=== PATIENT | female | born 1965 | race Caucasian/White ===

== ENCOUNTER → 2019-02-16 | Day surgery (SDC) | payer OTHER ==
[~2019-02-16] MED LIST: CARVEDILOL25 MG PO; CATAPRES0.1 MG PO; DEMADEX20 MG PO; FERROUSUL325 M1 PO; FLOMAX0.4 MG PO; GRALISE600 MG PO; HYDRALAZINE HC100 MG PO; LIPITOR40 MG PO; MUPIROCIN15 GM TOP; NORVASC10 MG PO; NOVOLOG100 UNIT/1 SUBQ; PHOSLO667 MG PO; TRAMADOL 50 MG50 MG PO; TRESIBA100 UNIT/1 SUBQ; TUMS200 MG PO; URECHOLINE 10 M10 M1 PO; VICTOZA 3-0.6 MG/0.1 SUBQ; VITAMIN D250 MCG PO
[2019-02-16 07:38] LABS: HEMATOCRIT 25.6 % (37.0-47.0); HEMOGLOBIN 8.4 gm/dL (12.0-15.0); MCH 27.7 pg (26.0-34.0); MCHC 32.8 g/dL (28.0-37.0); MCV 84.4 fL (80.0-100.0); MPV 6.9 fl. (7.2-11.1); RBC 3.03 mil/uL (4.20-5.00); RDW-CV 15.4 % (10.5-14.5)
[2019-02-16 07:45] LABS: CALCIUM 9.1 mg/dL (8.5-10.1); CREATININE 5.5 mg/dL (0.6-1.3); POTASSIUM 4.8 mmol/L (3.5-5.1)
--- NOTE | 2019-02-16 09:48 | EKG ---
[place] [address] ELECTROCARDIOGRAM REPORT Name: JONATHAN ANDERS Room: [facility]#: [id number] Admission: 02/16/19 Attend Phys: Giovanny Sharma MD Discharge: Date of : 65 Report #: [id number] THIS REPORT FOR: //name// [facility] Test Date: 2019-02-16 Test Time: 06:57:17 Pat Name: JONATHAN ANDERS Department: Room: Gender: F Sports Trainer: KB : 1965 Requested By: Giovanny Sharma Order Number: [id number] Reading MD: Catracho Chavira Measurements Intervals [place] Rate: 76 P: 1 [place]: 224 QRS: 21 QRSD: 97 T: 48 QT: 393 QTc: 442 Interpretive Statements Sinus rhythm Prolonged [place] interval No previous ECG available for comparison Electronically Signed On 02-16-2019 9:47:49 SOFTWARE DEVELOPMENT ADVISOR by Catracho Chavira [email or web address] <ELECTRONICALLY SIGNED> By: Catracho Chavira MD, [facility] 02/16/19 0947 [id number] Catracho Chavira MD, FACC /EPI
--- NOTE | 2019-02-18 09:06 | OP ---
[address] [address] OPERATIVE REPORT Name: JONATHAN ANDERS Room: [facility]#: [id number] Admission: 02/16/19 Attend Phys: Giovanny Sharma MD Discharge: Date of : 65 Report #: [id number] THIS REPORT FOR: //name// CC: Ratnesh. Steve Sharma DATE OF SERVICE: 02/16/2019 PREOPERATIVE DIAGNOSIS: End-stage renal disease with left forearm arteriovenous fistula that has failed to mature. POSTOPERATIVE DIAGNOSIS: End-stage renal disease with left forearm arteriovenous fistula that has failed to mature. PROCEDURES: 1. Transposition of cephalic vein within the forearm. 2. Dilation of cephalic vein within the forearm using 4-mm and 5-mm dilators. SURGEON: Giovanny Sharma MD CASINO ASSISTANT MANAGER: Mikel Ruffin. COMPLICATIONS: None. ESTIMATED BLOOD LOSS: 10 mL. SPECIMEN: None. ANESTHESIA: General. INDICATIONS FOR PROCEDURE: The patient is a very pleasant 54-year-old white female who had a left forearm radiocephalic AV fistula placement by my partner, Dr. Hou. Due to her body habitus, her fistula has a thrill. The thrill diminishes up the arm. I am concerned that the fistula is too deep within her forearm due to her body habitus. Further, it may also have a stricture point. We plan to take her for transition and revision today. Informed consent was obtained from the patient with risks including but not limited to bleeding, infection, need for further surgery, pain, , heart attack, stroke, steal syndrome. The patient understood these risks and was agreeable to proceed. DESCRIPTION OF PROCEDURE: The patient was taken to the OR and placed in supine position. General anesthesia was initiated, left arm was prepped and draped in usual sterile fashion. Timeout was performed. The patient received appropriate preoperative antibiotics. I created a longitudinal incision over the thrill. Sharp and blunt dissections were carried down to cephalic vein. I dissected out the cephalic vein from the wrist to the antecubital fossa[place] [address] OPERATIVE REPORT Name: JONATHAN ANDERS Room: [facility]#: [id number] Admission: 02/16/19 Attend Phys: Giovanny Sharma MD Discharge: Date of : 65 Report #: [id number] ligated multiple side branches mobilizing the vein up into the wound. There was an area where the vein became very small and strictured and ____ thrill more proximal to it. I was concerned that this was the area of stricture. I created a transverse venotomy in the distal vein. I passed a 4-mm and 5-mm dilator up the vein. There was some difficulty passing through the strictured point. I was able to dilate it up to 5 mm. I closed my venotomy with an interrupted 6-0 Prolene suture. At completion of the repair, there was adequate hemostasis and now palpable thrill in the fistulized vein all the way up the arm. I irrigated with antibiotic saline. I controlled bleeding as needed with electrocautery, ties, clips and J Carlos. I closed the deep fascial layer behind the vein using a running 2-0 Vicryl suture. I then closed the skin directly over the vein using a 4-0 Stratafix Monocryl suture. I dressed the incision with Dermabond. The patient was taken alert and awake to recovery room in good condition. All needle and instrument counts were correct. <ELECTRONICALLY SIGNED> By: Giovanny Sharma MD 02/18/19 0906 [id number] Sharma MD /nt
== END | disposition home or self-care (01) ==
LOC: M.SUR 06:56
PROVIDERS: Surgery Vascular Surgery
DX: T82.598A Other mechanical complication of other cardiac and vascular devices and implants, initial encounter (principal); N18.6 End stage renal disease; Z98.890 Other specified postprocedural states; Z88.0 Allergy status to penicillin; Z88.8 Allergy status to other drugs, medicaments and biological substances; Z79.899 Other long term (current) drug therapy; Y83.8 Other surgical procedures as the cause of abnormal reaction of the patient, or of later complication, without mention of misadventure at the time of the procedure